=== PATIENT | female | born 2000 | race Two or more races ===

== ENCOUNTER 2018-11-14 17:31 | Emergency (ER) | payer SELFPAY ==
[~2018-11-14] VITALS: Ht 160 cm; Wt 58.1 kg
[2018-11-14] MEDS ORDERED: TETANUS-DIPTH-ACEL PERTUSSIS 0.5ML SYRG IM ONE (18:30)
[2018-11-14] MEDS ORDERED: CLINDAMYCIN 900MG IV 50 ML IV ONE (18:30)
[2018-11-14 20:09] VITALS: BP 103/61
== END 2018-11-14 18:33 | disposition short-term general hospital (02) ==
LOC: ER 17:41
DX: S01.511A Laceration without foreign body of lip, initial encounter (principal); W54.0XXA Bitten by dog, initial encounter; Y93.89 Activity, other specified; Y99.8 Other external cause status; Y92.89 Other specified places as the place of occurrence of the external cause
CPT/HCPCS: 90471; 90715; 96365; 99285; J3490